=== PATIENT | female | born 1995 | race Two or more races ===

== ENCOUNTER 2019-01-29 01:15 | Emergency (ER) | payer OTHER ==
[~2019-01-29] VITALS: Ht 152.4 cm; Wt 67.6 kg
--- NOTE | 2019-01-29 01:45 | NUR ---
Patient stated she wanted to get all studies to be done at [place] because they have all of her records. She also stated that she is tired and would like to go home and rest. Patient spoke to MD and MD is aware. Patient discharge and verbalize understanding. Patient went home with personal belongings. Patient self ambulatory with steady gait.
[2019-01-29 02:16] VITALS: BP 102/71
== END 2019-01-29 01:49 | disposition home or self-care (01) ==
LOC: ER 01:21
DX: O20.8 Other hemorrhage in early pregnancy (principal); Z3A.01 Less than 8 weeks gestation of pregnancy
CPT/HCPCS: A4663